=== PATIENT | female | born 2000 | race Two or more races ===

== ENCOUNTER 2022-04-26 20:46 | Emergency (ER) | payer OTHER ==
[~2022-04-26] VITALS: Ht 157.5 cm; Wt 48.5 kg
== END 2022-04-26 22:55 | disposition home or self-care (01) ==
LOC: EMR PED 20:46
DX: D64.9 Anemia, unspecified (principal)

== ENCOUNTER 2025-10-16 18:24 | Emergency (ER) | payer OTHER ==
[~2025-10-16] VITALS: Ht 157.5 cm; Wt 52.2 kg
[2025-10-16 20:04] VITALS: BP 114/79; O2SAT 100
[2025-10-16] MEDS ORDERED: 0.9 % SODIUM CHLORIDE 1,000 ML IV STA (20:45)
[2025-10-16 21:45] LABS: BASO % 0.0 % (0.1-1.2); EOS # 0.01 (0.04-0.54); EOS % 0.3 % (0.7-7.0); LYMPH # 0.80 (1.18-3.74); LYMPH % 25.0 % (19.3-53.1); MEAN PLATELET VOLUME 11.10 fl (9.4-12.4); MONO # 0.51 (0.24-0.82); NEUT # 1.87 (1.56-6.13); NEUT % 58.5 % (34.0-71.1); RED CELL DISTRIBUTION WIDTH 13.5 % (11.6-14.4)
[2025-10-16 22:07] LABS: MONO % 15.9 % (4.7-12.5)
[2025-10-16 22:12] LABS: D DIMER 0.33 MG/L; ERYTHROCYTE SEDIMENTATION RATE 17 mm/hr (0-20); INR 1.03
[2025-10-16 22:16] LABS: ALT/SGPT 17.0 U/L (12-78); AST/SGOT 18.0 U/L (15-37); BILIRUBIN TOTAL 0.21 mg/dL (0.3-1.2); BUN CREA RATIO 12.0 (7.0-25.0); CREATININE SERUM 0.6 mg/dL (0.55-1.02); GFR 123.88; GLOBULINA 4.2 G/DL (2.4-3.5); GLUCOSE FASTING 82.0 mg/dL (65-100); OSMOLALITY SERUM 273.0 MOSM/KG (275-295)
[2025-10-16 22:18] LABS: URINE APPEARANCE Cloudy; URINE BILIRRUBIN Negative (NEGATIVE); URINE BLOOD Small; URINE COLOR Yellow; URINE GLUCOSE Negative (NEGATIVE); URINE KETONE 15 (NEGATIVE); URINE LEUKOCYTE Moderate; URINE NITRATE Negative; URINE PROTEIN Trace (NEGATIVE); URINE UROBILINOGEN 1.0 E.U./dl
[2025-10-16 22:23] LABS: URINE EPITHELIAL CELLS 92.4 uL (0.0-38.8); URINE RBC 43.9 uL (0.0-20.8)
[2025-10-16 22:42] LABS: URINE CAST 0.14 uL (0.0-1.40)
[2025-10-16 22:49] LABS: URINE MUCUS SCANT
[2025-10-16 22:50] LABS: TYPE CELLS SQUAMOUS
[2025-10-16 22:51] LABS: URINE WBC 515.4 uL (0.0-23.2)
[2025-10-17] MEDS ORDERED: CEFTRIAXONE SODIUM 2,000 MG VIAL IV STA (00:16)
[2025-10-17] MEDS ORDERED: CIPRO500 MG PO (00:47)
[2025-10-17] MEDS ORDERED: CEFTRIAXONE SODIUM 2,000 MG VIAL ONE (02:55)
== END 2025-10-17 03:44 | disposition home or self-care (01) ==
LOC: ER 18:25
PROVIDERS: Physician Assistant Medical
DX: N39.0 Urinary tract infection, site not specified (principal); R53.83 Other fatigue; R53.1 Weakness; R53.81 Other malaise; D64.89 Other specified anemias

== ENCOUNTER 2025-10-22 21:25 | Emergency (ER) | payer OTHER ==
[~2025-10-22] VITALS: Ht 157.5 cm; Wt 52.2 kg
[~2025-10-22 21:25] MED LIST: CIPRO500 MG PO
[2025-10-23 01:20] LABS: BASO % 0.2 % (0.1-1.2); EOS # 0.01 (0.04-0.54); EOS % 0.2 % (0.7-7.0); LYMPH # 1.01 (1.18-3.74); LYMPH % 19.3 % (19.3-53.1); MEAN PLATELET VOLUME 10.70 fl (9.4-12.4); MONO # 0.29 (0.24-0.82); MONO % 5.6 % (4.7-12.5); NEUT # 3.89 (1.56-6.13); NEUT % 74.5 % (34.0-71.1); RED CELL DISTRIBUTION WIDTH 13.0 % (11.6-14.4)
[2025-10-23 01:51] LABS: INR 1.02
[2025-10-23 01:54] LABS: ERYTHROCYTE SEDIMENTATION RATE 46 mm/hr (0-20)
[2025-10-23 01:55] LABS: ALT/SGPT 25.0 U/L (12-78); AST/SGOT 17.0 U/L (15-37); BILIRUBIN TOTAL 0.5 mg/dL (0.3-1.2); BUN CREA RATIO 15.0 (7.0-25.0); CREATININE SERUM 0.59 mg/dL (0.55-1.02); GFR 126.31; GLOBULINA 3.7 G/DL (2.4-3.5); GLUCOSE FASTING 98.0 mg/dL (65-100); OSMOLALITY SERUM 280.0 MOSM/KG (275-295)
[2025-10-23 02:04] LABS: URINE APPEARANCE Clear; URINE BILIRRUBIN Negative (NEGATIVE); URINE BLOOD Large; URINE GLUCOSE Negative (NEGATIVE); URINE KETONE 15 (NEGATIVE); URINE LEUKOCYTE Trace; URINE NITRATE Negative; URINE PROTEIN Trace (NEGATIVE); URINE UROBILINOGEN 0.2 E.U./dl
[2025-10-23 02:10] LABS: URINE BACTERIA 165.8 uL (0.0-1933); URINE EPITHELIAL CELLS 34.0 uL (0.0-38.8); URINE RBC 3459.6 uL (0.0-20.8); URINE WBC 13.9 uL (0.0-23.2)
[2025-10-23 02:11] LABS: URINE CAST 0.14 uL (0.0-1.40); URINE COLOR Dark Yellow
[2025-10-23] MEDS ORDERED: FAMOTIDINE/PF 20 MG/2 ML VIAL IV STA (02:57)
[2025-10-23] MEDS ORDERED: 0.9 % SODIUM CHLORIDE 1,000 ML IV STA (02:57)
[2025-10-23] MEDS ORDERED: ONDANSETRON HCL 2 MG/ML VIAL IV STA (02:57)
[2025-10-23] MEDS ORDERED: ONDANSETRON HCL 2 MG/ML VIAL ONE (03:21)
[2025-10-23] MEDS ORDERED: FAMOTIDINE/PF 20 MG/2 ML VIAL ONE (03:22)
[2025-10-23] MEDS ORDERED: LEVSIN/SL0.125 MG SL (06:06)
[2025-10-23] MEDS ORDERED: PEPCID AC10 MG PO (06:06)
== END 2025-10-23 06:21 | disposition home or self-care (01) ==
LOC: ER 21:26
PROVIDERS: Physician Assistant Medical
DX: K52.89 Other specified noninfective gastroenteritis and colitis (principal); E85.0 Non-neuropathic heredofamilial amyloidosis; D28.7 Benign neoplasm of other specified female genital organs; D64.89 Other specified anemias
CPT/HCPCS: 36415; 74177; 96365; 99283; J2405; J3490; J7030; Q9965